=== PATIENT | female | born 1935 | race Native Hawaiian/Other Pacific Islander ===

== ENCOUNTER 2016-08-29 14:24 | Outpatient (CLI) | payer OTHER | END 2016-08-29 15:24 | disposition home or self-care (01) | LOC: LABW 14:24 | DX: E03.8 Other specified hypothyroidism (principal) | CPT/HCPCS: 36415; 84439; 84443 ==

== ENCOUNTER 2016-09-15 10:27 | Emergency (ER) | payer OTHER ==
[~2016-09-15] VITALS: Ht 162.6 cm; Wt 54.4 kg
[2016-09-15 10:50] VITALS: TEMP 98
[2016-09-15 12:25] VITALS: BP 136/86
== END 2016-09-15 12:45 | disposition home or self-care (01) ==
LOC: ED 10:27
DX: H15.091 Other scleritis, right eye (principal)
CPT/HCPCS: 99282

== ENCOUNTER 2016-12-24 12:44 | Observation (INO) | payer OTHER ==
[~2016-12-24] VITALS: Ht 165.1 cm; Wt 51.3 kg
[2016-12-24 14:31] LABS: PLATELET COUNT 204 K/uL (152-353)
[2016-12-24 14:37] LABS: POTASSIUM 3.9 mmol/L (3.6-5.2); SODIUM 142 mmol/L (136-145)
[2016-12-24 15:46] VITALS: BP 177/83; TEMP 98.4; Ht 165.1 cm; Wt 51.3 kg
[2016-12-24] MEDS ORDERED: ASPIR-LOW81 MG PO (17:55)
[2016-12-24] MEDS ORDERED: TRAZ100T OR (17:56)
[2016-12-24] MEDS ORDERED: SIMV10TA PO (17:58)
[2016-12-24] MEDS ORDERED: LEVO-T25 MCG PO (17:59)
--- NOTE | 2016-12-24 18:07 | NUR ---
12/24/16 @1530 BELONGINGS BROUGHT WITH PT PLACED IN LOCK BOX BY KATHLEEN SAN RN. BELONGINGS CONSISTED OF KEYS, WATCH, GREEN CARD [place] WITH CARDS, $0.60 LOOSE CHANGE AND $185, $260, AND $43 INDIVIDUAL SUNTRUST ENVELOPES. MONEY COUNTED AND WITNESSED BY 2 NURSES.
[2016-12-24 20:29] VITALS: BP 143/65; TEMP 98.5
--- NOTE | 2016-12-24 21:35 | NUR ---
ROUNDING ON PT AT THIS TIME. PT APPEARS AGGITATED. PT STATES THAT "IF YOU DON'T TAKE THIS THING OUT MY ARM I'M GOING TO RIP IT OUT." INFORMED PT THAT THE IV HAD TO STAY IN THAT SHE WAS GETTING FLUIDS THROUGH IT. PT ALSO STATED IN REGARDS TO HER TELEMETRY BOX THAT "IF YOU DON'T TAKE THIS OFF OF ME I'M GOING TO BEAT YOU IN THE HEAD WITH IT OR BEAT MYSELF WITH IT ONE." TRIED TO REORIENT PT AND INFORM HER OF THE PURPOSE OF THE TELEMETRY UNIT. PT STILL CONTINUED TO STATE THAT SHE WOULD HIT STAFF OR HERSELF WITH IT. UNHOOKED PT FROM IV AND REMOVED TELEMETRY AT THIS TIME FOR PATIENT SAFETY.
--- NOTE | 2016-12-24 22:20 | NUR ---
PT REFUSES TO ALLOW RESPIRATORY THERAPIST TO OBTAIN A 12 LEAD ECG. THERAPIST ATTEMPTED MULIPLE TIMES PLACING LEADS ON PT. PT CONTINUED TO REMOVE LEADS. PT STATED TO LEAVE HER ALONE AND NOT TO BOTHER HER. NURSE Corey SHANKS. AWARE OF PT'S REFUSAL TO PERFORM ECG.
--- NOTE | 2016-12-24 23:00 | NUR ---
PT IS WONDERING HALLS AND GOING INTO OTHER PATIENT'S ROOM. RETURNED PATIENT TO HER ROOM. PT STATES SHE IS READY TO GO AND THAT SHE "WILL WALK HOME IF I HAVE TO." PT APPEARS VERY AGGITATED AND RESTLESS. NOTIFIED ER DOCTOR OF PT'S CONDITION. ORDER RECEIVED FOR HALDOL 5MG IM X1 DOSE.
[2016-12-25 00:19] VITALS: BP 156/75; TEMP 97.9
--- NOTE | 2016-12-25 01:46 | NUR ---
PT UP OOB STANDING IN DOORWAY. PT REFUSES TO GET IN BED OR TO STAY IN ROOM. PT STATES SHE "JUST WANTS TO GO HOME" ATTEMPTED TO REORIENT PT AND TRY TO GET HER TO GO TO BED AND PT REFUSES.
[2016-12-25 04:00] VITALS: BP 117/66; TEMP 97.8
--- NOTE | 2016-12-25 04:50 | NUR ---
PT NOW RESTING QUIETLY WITH EYES CLOSED. INSTRUCTED TECH TO NOT OBTAIN 0400 VITALS DUE PT'S LACK OF REST DURING THE NIGHT. WILL CONTINUE TO MONITOR.
--- NOTE | 2016-12-25 05:10 | NUR ---
UNABLE TO OBTAIN 12 LEAD ECG DUE TO PT REFUSAL. NURSE RIMMA DEMARCO.
[2016-12-25 06:10] LABS: PLATELET COUNT 200 K/uL (152-353)
[2016-12-25 06:18] LABS: POTASSIUM 3.7 mmol/L (3.6-5.2); SODIUM 140 mmol/L (136-145)
[2016-12-25 08:00] VITALS: BP 151/85; TEMP 97.7
[2016-12-25 12:00] VITALS: BP 154/80; TEMP 98.7
[2016-12-25 16:00] VITALS: BP 166/84; TEMP 97.7
--- NOTE | 2016-12-25 20:00 | NUR ---
PT TRANSFERED TO [facility] VIA W/C AT THIS TIME.
== END 2016-12-25 19:55 | disposition other institution (70) ==
LOC: MED/SURG 12:44
PROVIDERS: Emergency Medicine; ADMIT Internal Medicine
DX: R41.82 Altered mental status, unspecified (principal); R00.2 Palpitations; E03.8 Other specified hypothyroidism; E78.4 Other hyperlipidemia; R53.1 Weakness; R41.0 Disorientation, unspecified
CPT/HCPCS: 80053; 81000; 82550; 82553; 83735; 84439; 84443; 84484; 85027; 93005; 96360; 96361; 96372; 99220; G0378; G0379; J1630

== ENCOUNTER 2019-04-20 13:54 | Emergency (ER) | payer OTHER ==
[~2019-04-20] VITALS: Ht 170.2 cm; Wt 63.5 kg
[~2019-04-20 13:54] MED LIST: ASPIR-LOW81 MG PO; LEVO-T25 MCG PO; SIMV10TA PO; TRAZ100T OR
[2019-04-20 14:00] VITALS: BP 162/78; TEMP 98.8
[2019-04-20 14:19] LABS: PLATELET COUNT 236 K/uL (152-353)
[2019-04-20 14:29] LABS: POTASSIUM 3.6 mmol/L (3.6-5.2)
[2019-05-03] MEDS ORDERED: RISP0.25 PO (15:29)
[2019-05-03] MEDS ORDERED: MEMA5TAB PO (15:31)
[2019-05-03] MEDS ORDERED: LORA10TA3 PO (15:33)
[2019-05-03] MEDS ORDERED: ESCI10TA PO (15:34)
[2019-05-03] MEDS ORDERED: DONE5TAB PO (15:35)
[2019-05-06] MEDS ORDERED: ABILIFY MYCITE5 MG PO (16:59)
== END 2019-04-20 15:17 | disposition other institution (70) ==
LOC: ED 13:54
PROVIDERS: Emergency Medicine
DX: F03.91 Unspecified dementia, unspecified severity, with behavioral disturbance (principal); Z91.83 Wandering in diseases classified elsewhere; F32.89 Other specified depressive episodes; I45.19 Other right bundle-branch block; Z04.6 Encounter for general psychiatric examination, requested by authority
CPT/HCPCS: 80053; 80307; 80320; 80329; 81000; 85027; 93005; 99283; 99285